=== PATIENT | female | born 1965 | race Two or more races ===

== ENCOUNTER 2024-04-22 15:17 | Outpatient (AMB) | payer MEDICAID, SELFPAY ==
[2024-04-22 15:38] VITALS: BP 147/92; PULSE 93; RESP 18; TEMP 35.9; O2SAT 96; BMI 35.4
--- NOTE | 2024-04-22 15:38 | PD.ORTHCLVIS ---
Vital signs 04/22/24 15:38 Height 1.57 m Height Method Stated Weight 87.203 kg Weight Measurement Method Standing Scale BMI 35.4 BP 147/92 H Blood Pressure Source Automatic Cuff Blood Pressure Location Right Upper Arm Position Sitting Respiration 18 Pulse 93 Pulse Source Monitor Temp 96.6 F L Temp Source Temporal Artery Scan Pulse Oximetry (%) 96 Oxygen Delivery Method Room Air Med/Allergies Allergies & Medications Allergies No Known Allergies Allergy (Verified 04/22/24 15:38) Medication Reconciliation cyclobenzaprine 10 mg tablet 10 mg PO TID 01/15/24 [History Confirmed 04/22/24] multivitamin 1 tab PO QDAY 01/15/24 [History Confirmed 04/22/24] acetaminophen 500 mg tablet (Acetaminophen Extra Strength) 1,000 mg (2 x 500 mg) PO Q6H PRN pain #90 tabs 02/01/24 [Rx Confirmed 04/22/24] aspirin 81 mg tablet,delayed release 81 mg PO BID #60 tabs 02/01/24 [Rx Confirmed 04/22/24] doxycycline hyclate 100 mg tablet 100 mg PO BID #14 tabs 02/01/24 [Rx Confirmed 04/22/24] pregabalin 75 mg capsule 75 mg PO BID #45 caps 02/01/24 [Rx Confirmed 04/22/24] sennosides 8.6 mg-docusate sodium 50 mg tablet (Senna-S) 1 tab-cap PO QDAY #30 tabs 02/01/24 [Rx Confirmed 04/22/24] oxycodone 5 mg tablet 5 mg PO Q6H PRN pain #28 tabs 02/16/24 [Rx Confirmed 04/22/24] cyclobenzaprine 5 mg tablet 5 mg PO QHS PRN muscle spasm #30 tabs 04/22/24 [Rx] ibuprofen 800 mg tablet 800 mg PO Q8H PRN pain #50 tabs 04/22/24 [Rx] Subjective Visit Visit for: follow up visit Immunization / Flu Flu Vaccine in the Last 12 Months: No Flu Vaccine Exclusion Criteria: No Exclusion Criteria History of Present Illness Chief complaint: 4 WEEK FOLLOW UP Patient is doing well 12 weeks postop from a left total knee replacement. She is doing outpatient pt. Pain Pain level (0-10): 0 Pain duration: CONSTANT Pain location: inside (medial) Pain quality: sharp, dull and aching Pain timing: night and increases with activity Associated signs & symptoms: none Ambulatory data Ambulatory device: cane Treatments Improvement with previous injections: No Improvement with PT: No Improvement with NSAIDS: no Review of Systems Review of Systems: All systems negative unless otherwise noted in HPI. Exam Exam Patient is in no acute distress and is cooperative with the examination today. Breathing is nonlabored. Patient has a normal mood and affect. The patient has a gait that is [nonantalgic] Bilateral extremities were evaluated and demonstrates sensation intact to light touch. Palpable pedal pulses are present. No significant edema is present. Bilateral hips were examined. The patient has no pain with log roll of the hips. Internal rotation to 30 degrees and external rotation to 30 degrees is painless. Negative FADIR. Right knee was examined today. The right knee is in reasonable alignment. Range of motion from 0-120 degrees. Knee is stable to varus and valgus as well as AP translation with <5mm. Patient has a negative McMurrays. There is no pain with patellofemoral compression and no crepitus noted. The knee is nontender to palpation. Left knee incision clean, dry, and intact. 0-100 degrees for rom X-rays demonstrate a left total knee replacement in good alignment position. Assessment and Plan Problem List (1) Unilateral primary osteoarthritis, left knee: Status: Acute (2) History of total left knee replacement: Status: Acute Plan: Patient is doing well s/p L TKA. We will see the patient back in approximately 3 months. Office Procedures GNS Level of Care Nursing/Assessment Patient Status: Established Patient Nursing Assessment/Reassesment: Medication Reconciliation, Update PMH in EMR and Vital Signs Coordination of Care: Complex Care and Chronic Disease 1-5, Education Complex Pt/Fam, Consent,records obtained, informed consent and Staff clarify orders Established Patient Charge Established Patient Point Assignment: 90 Established Patient Point Charge: EP Level 3 (80-115) Past Medical History Past Medical History Have you ever been diagnosed with any of the following: Neurological Problems Seizures: No Cardiology Problems Congestive Heart Failure: No Respiratory Problems Chronic Obstructive Pulmonary Disease (COPD): No Smoking: No Smoking Cessation Counseling: No Smoking Exposure: No Tobacco Use: No Clubbing: No Stomache/Intestinal Problems Hepatitis: No Obesity: Yes Genital/Urinary Problems Renal Disease: No Reproductive Problems Previous Pregnancies: Yes Musculoskeletal Problems Arthritis: Yes (knee left) Degenerative Disk Disease: Yes Carpal Tunnel Syndrome: Yes (Bilateral) Endocrine Problems Diabetes Mellitus Type 1: No Diabetes Mellitus Type 2: No Psychologic Problems Anxiety: Yes (no meds) Other Problems Hospitalization: No Shingles: Yes Blood Transfusions: No Blood Transfusion Reaction: No Anesthesia Reactions: No Chicken Pox: Yes Cancer: No
== END 2024-04-22 15:50 | disposition home or self-care (01) ==
LOC: HODSRG 15:17
PROVIDERS: PCP Emergency Medicine; Referring Provider Emergency Medicine; Supervising Provider Orthopaedic Surgery Adult Reconstructive Orthopaedic Surgery; Visit Provider Orthopaedic Surgery Adult Reconstructive Orthopaedic Surgery
DX: M17.12 Unilateral primary osteoarthritis, left knee (principal); Z96.652 Presence of left artificial knee joint
CPT/HCPCS: 99213; G0463

== ENCOUNTER 2024-08-02 14:13 | Outpatient (AMB) | payer MEDICARE, MEDICAID, SELFPAY ==
--- NOTE | 2024-08-02 14:37 | ORTHONT_ITS ---
Vital signs 08/02/24 14:38 Height 1.57 m Height Method Stated Weight 86.353 kg Weight Measurement Method Standing Scale BMI 35.0 BP 157/84 H Blood Pressure Source Automatic Cuff Blood Pressure Location Right Upper Arm Position Sitting Respiration 18 Pulse 78 Pulse Source Monitor Temp 97.6 F Temp Source Temporal Artery Scan Pulse Oximetry (%) 95 Oxygen Delivery Method Room Air Med/Allergies Allergies & Medications Allergies No Known Allergies Allergy (Verified 08/02/24 14:38) Medication Reconciliation cyclobenzaprine 10 mg tablet 10 mg PO TID 01/15/24 [History Confirmed 08/02/24] multivitamin 1 tab PO QDAY 01/15/24 [History Confirmed 08/02/24] acetaminophen 500 mg tablet (Acetaminophen Extra Strength) 1,000 mg (2 x 500 mg) PO Q6H PRN pain #90 tabs 02/01/24 [Rx Confirmed 08/02/24] aspirin 81 mg tablet,delayed release 81 mg PO BID #60 tabs 02/01/24 [Rx Confirmed 08/02/24] doxycycline hyclate 100 mg tablet 100 mg PO BID #14 tabs 02/01/24 [Rx Confirmed 08/02/24] pregabalin 75 mg capsule 75 mg PO BID #45 caps 02/01/24 [Rx Confirmed 08/02/24] sennosides 8.6 mg-docusate sodium 50 mg tablet (Senna-S) 1 tab-cap PO QDAY #30 tabs 02/01/24 [Rx Confirmed 08/02/24] oxycodone 5 mg tablet 5 mg PO Q6H PRN pain #28 tabs 02/16/24 [Rx Confirmed 08/02/24] cyclobenzaprine 5 mg tablet 5 mg PO QHS PRN muscle spasm #30 tabs 04/22/24 [Rx Confirmed 08/02/24] ibuprofen 800 mg tablet 800 mg PO Q8H PRN pain #50 tabs 04/22/24 [Rx Confirmed 08/02/24] Exam Exam Patient is in no acute distress and is cooperative with the examination today. Breathing is nonlabored. Patient has a normal mood and affect. The patient has a gait that is [nonantalgic] Bilateral extremities were evaluated and demonstrates sensation intact to light touch. Palpable pedal pulses are present. No significant edema is present. Bilateral hips were examined. The patient has no pain with log roll of the hips. Internal rotation to 30 degrees and external rotation to 30 degrees is painless. Negative FADIR. Right knee was examined today. The right knee is in reasonable alignment. Range of motion from 0-120 degrees. Knee is stable to varus and valgus as well as AP translation with <5mm. Patient has a negative McMurrays. There is no pain with patellofemoral compression and no crepitus noted. The knee is nontender to palpation. Left knee incision clean, dry, and intact. 0-100 degrees for rom X-rays demonstrate a left total knee replacement in good alignment position. Assessment and Plan Problem List (1) Unilateral primary osteoarthritis, left knee: Status: Acute (2) History of total left knee replacement: Status: Acute Plan: Patient is doing well s/p L TKA. We will see the patient back in approximately 6 months. She has some contralateral knee pain as well as right hip pain. We will order x-rays to take a look at this Office Procedures GNS Level of Care Nursing/Assessment Patient Status: Established Patient Nursing Assessment/Reassesment: Medication Reconciliation, Update PMH in EMR and Vital Signs Coordination of Care: Complex Care and Chronic Disease 1-5, Education Complex Pt/Fam, Consent,records obtained, informed consent, Results/Orders obtained and Staff clarify orders Special Needs: Language special needs Established Patient Charge Established Patient Point Assignment: 95 Established Patient Point Charge: EP Level 3 (80-115) MA Intake Visit Data Collection New Patient or Established: Established Patient (seen at [facility] within 3 years) Reason for Visit:: F/U 3 MONTHS Seen by Clinical Staff ONLY (RN/MA): No Verbal consent obtained for Telemed visit?: No 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 PCP or OBGYN visit in last 3 months: Yes Hx Now: No Do You Feel Safe at Home: Yes Authorities Contacted: N/A Questionairres Past Medical History Past Medical History Have you ever been diagnosed with any of the following: Neurological Problems Seizures: No Cardiology Problems Congestive Heart Failure: No Respiratory Problems Chronic Obstructive Pulmonary Disease (COPD): No Smoking: No Smoking Cessation Counseling: No Smoking Exposure: No Tobacco Use: No Clubbing: No Stomache/Intestinal Problems Hepatitis: No Obesity: Yes Genital/Urinary Problems Renal Disease: No Reproductive Problems Previous Pregnancies: Yes Musculoskeletal Problems Arthritis: Yes (knee left) Degenerative Disk Disease: Yes Carpal Tunnel Syndrome: Yes (Bilateral) Endocrine Problems Diabetes Mellitus Type 1: No Diabetes Mellitus Type 2: No Psychologic Problems Anxiety: Yes (no meds) Other Problems Hospitalization: No Shingles: Yes Blood Transfusions: No Blood Transfusion Reaction: No Anesthesia Reactions: No Chicken Pox: Yes Cancer: No Subjective Visit Visit for: follow up visit and knee Immunization / Flu Flu Vaccine in the Last 12 Months: No Flu Vaccine Exclusion Criteria: No Exclusion Criteria History of Present Illness Chief complaint: 3 MONTH FOLLOW UP Patient is doing well s/p L TKA. She is doing well s/p L TKA. Pain Pain level (0-10): 0 Ambulatory data Ambulatory device: none Treatments Improvement with previous injections: No Improvement with PT: No Improvement with NSAIDS: no Review of Systems Review of Systems: All systems negative unless otherwise noted in HPI.
[2024-08-02 14:38] VITALS: BP 157/84; PULSE 78; RESP 18; TEMP 36.4; O2SAT 95; BMI 35.0
== END 2024-08-02 15:15 | disposition home or self-care (01) ==
PROVIDERS: PCP Emergency Medicine; Referring Provider Emergency Medicine; Supervising Provider Orthopaedic Surgery Adult Reconstructive Orthopaedic Surgery; Visit Provider Orthopaedic Surgery Adult Reconstructive Orthopaedic Surgery
DX: M17.12 Unilateral primary osteoarthritis, left knee (principal); Z96.652 Presence of left artificial knee joint; M25.551 Pain in right hip
CPT/HCPCS: 99213; G0463

== ENCOUNTER 2024-09-08 13:46 | Outpatient (AMB) | payer MEDICARE, MEDICAID, SELFPAY ==
[2024-09-08 14:14] VITALS: BP 132/87; PULSE 77; RESP 18; TEMP 36.4; O2SAT 96; BMI 35.3
--- NOTE | 2024-09-08 14:14 | PD.ORTHCLVIS ---
Vital signs 09/08/24 14:14 Height 1.57 m Height Method Stated Weight 87 kg Weight Measurement Method Estimated by Patient BMI 35.3 BP 132/87 H Blood Pressure Source Automatic Cuff Blood Pressure Location Right Upper Arm Position Sitting Respiration 18 Pulse 77 Pulse Source Monitor Temp 97.6 F Temp Source Temporal Artery Scan Pulse Oximetry (%) 96 Oxygen Delivery Method Room Air Med/Allergies Allergies & Medications Allergies No Known Allergies Allergy (Verified 09/08/24 14:17) Medication Reconciliation cyclobenzaprine 10 mg tablet 10 mg PO TID 01/15/24 [History Confirmed 09/08/24] multivitamin 1 tab PO QDAY 01/15/24 [History Confirmed 09/08/24] acetaminophen 500 mg tablet (Acetaminophen Extra Strength) 1,000 mg (2 x 500 mg) PO Q6H PRN pain #90 tabs 02/01/24 [Rx Confirmed 09/08/24] aspirin 81 mg tablet,delayed release 81 mg PO BID #60 tabs 02/01/24 [Rx Confirmed 09/08/24] doxycycline hyclate 100 mg tablet 100 mg PO BID #14 tabs 02/01/24 [Rx Confirmed 09/08/24] pregabalin 75 mg capsule 75 mg PO BID #45 caps 02/01/24 [Rx Confirmed 09/08/24] sennosides 8.6 mg-docusate sodium 50 mg tablet (Senna-S) 1 tab-cap PO QDAY #30 tabs 02/01/24 [Rx Confirmed 09/08/24] oxycodone 5 mg tablet 5 mg PO Q6H PRN pain #28 tabs 02/16/24 [Rx Confirmed 09/08/24] cyclobenzaprine 5 mg tablet 5 mg PO QHS PRN muscle spasm #30 tabs 04/22/24 [Rx Confirmed 09/08/24] ibuprofen 800 mg tablet 800 mg PO Q8H PRN pain #50 tabs 04/22/24 [Rx Confirmed 09/08/24] Exam Exam Patient is in no acute distress and is cooperative with the examination today. Breathing is nonlabored. Patient has a normal mood and affect. The patient has a gait that is [nonantalgic] Bilateral extremities were evaluated and demonstrates sensation intact to light touch. Palpable pedal pulses are present. No significant edema is present. Bilateral hips were examined. The patient has no pain with log roll of the hips. Internal rotation to 30 degrees and external rotation to 30 degrees is painless. Negative FADIR. Right knee was examined today. The right knee is in reasonable alignment. Range of motion from 0-120 degrees. Knee is stable to varus and valgus as well as AP translation with <5mm. Patient has a negative McMurrays. There is no pain with patellofemoral compression and no crepitus noted. The knee is nontender to palpation. Left knee incision clean, dry, and intact. 0-100 degrees for rom X-rays demonstrate a left total knee replacement in good alignment position. Right hip x-rays demonstrate preserved joint spaces. There is found to be L4-S1 degenerative disc disease Assessment and Plan Problem List (1) Lumbar radiculopathy: Status: Acute Plan: Patient is a 58-year-old female with right buttocks pain that radiates down her leg. The pain is excruciating. We will send her muscle laxer nerve medication. We obtained hip x-rays and they were completely normal. We will get an MRI and spine x-rays. Will discuss different treatment options for her spinal stenosis depending on what the imaging shows Office Procedures GNS Level of Care Nursing/Assessment Patient Status: Established Patient Nursing Assessment/Reassesment: Medication Reconciliation, Update PMH in EMR and Vital Signs Coordination of Care: Complex Care and Chronic Disease 1-5, Education Complex Pt/Fam, Consent,records obtained, informed consent, Results/Orders obtained and Staff clarify orders Established Patient Charge Established Patient Point Assignment: 95 Established Patient Point Charge: EP Level 3 (80-115) MA Intake Visit Data Collection New Patient or Established: Established Patient (seen at [facility] within 3 years) Reason for Visit:: XRAYS FOLLOW UP Seen by Clinical Staff ONLY (RN/MA): No Verbal consent obtained for Telemed visit?: No 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 PCP or OBGYN visit in last 3 months: Yes Hx Now: No Do You Feel Safe at Home: Yes Authorities Contacted: N/A Questionairres Past Medical History Past Medical History Have you ever been diagnosed with any of the following: Neurological Problems Seizures: No Cardiology Problems Congestive Heart Failure: No Respiratory Problems Chronic Obstructive Pulmonary Disease (COPD): No Smoking: No Smoking Cessation Counseling: No Smoking Exposure: No Tobacco Use: No Clubbing: No Stomache/Intestinal Problems Hepatitis: No Obesity: Yes Genital/Urinary Problems Renal Disease: No Reproductive Problems Previous Pregnancies: Yes Musculoskeletal Problems Arthritis: Yes (knee left) Degenerative Disk Disease: Yes Carpal Tunnel Syndrome: Yes (Bilateral) Endocrine Problems Diabetes Mellitus Type 1: No Diabetes Mellitus Type 2: No Psychologic Problems Anxiety: Yes (no meds) Other Problems Hospitalization: No Shingles: Yes Blood Transfusions: No Blood Transfusion Reaction: No Anesthesia Reactions: No Chicken Pox: Yes Cancer: No Subjective Visit Visit for: follow up visit and x-rays Immunization / Flu Flu Vaccine in the Last 12 Months: No Flu Vaccine Exclusion Criteria: No Exclusion Criteria History of Present Illness Chief complaint: F/U XRAYS Diane is a pleasant 58-year-old female who is status post left total Knee replacement 7 months ago. She reports the right buttocks is hurting and it radiates to the groin. She is here for x-ray results of her right hip Pain Pain level (0-10): 10 Pain duration: ALL DAY Pain location: outside (lateral) Pain quality: sharp Pain timing: increases with activity Associated signs & symptoms: stiffness Ambulatory data Ambulatory device: none Treatments Improvement with previous injections: No Improvement with PT: No Improvement with NSAIDS: no Review of Systems Review of Systems: All systems negative unless otherwise noted in HPI.
--- NOTE | 2024-09-08 14:27 | XR_ITS ---
Examination: Lumbar spine 3 views Technique: AP, lateral, coned lateral lower lumbar spine 3 views. Exam date and time: September 08, 2024, 1437 hrs. Indication: Low back pain radiating to the right hip beginning 4 months ago. Findings: Moderate to advanced diffuse lumbar degenerative disc disease Prominent lumbar spondylosis. No lumbar fracture No cortical bone destruction. Impression: Moderate to advanced diffuse lumbar degenerative disc disease
== END 2024-09-08 15:20 | disposition home or self-care (01) ==
LOC: HODSRG 13:46
PROVIDERS: PCP Emergency Medicine; Referring Provider Emergency Medicine; Supervising Provider Orthopaedic Surgery Adult Reconstructive Orthopaedic Surgery; Visit Provider Orthopaedic Surgery Adult Reconstructive Orthopaedic Surgery
DX: M54.16 Radiculopathy, lumbar region (principal); Z96.652 Presence of left artificial knee joint
CPT/HCPCS: 72100; 99213; G0463

== ENCOUNTER → 2024-10-17 | Outpatient (CLI) | payer MEDICARE, MEDICAID, SELFPAY ==
[2024-10-17 12:30] LABS: Alanine Aminotransferase 22 U/L (10-49); Albumin, Serum 4.6 gm/dL (3.4-4.8); Alkaline Phosphatase 123 U/L (46-116); Anion Gap 6 (7-16); Aspartate Amino Transferase 20 U/L (0-34); BUN/Creatinine Ratio 15 Ratio (12-20); Bilirubin,Direct 0.1 mg/dL (0.0-0.3); Bilirubin,Total 0.4 mg/dL (0.3-1.2); Blood Urea Nitrogen 12 mg/dL (9-23); Calcium 9.5 mg/dL (8.3-10.6); Carbon Dioxide 25.7 mMol/L (20.0-31.0); Chloride 108 mMol/L (98-107); Creatinine (Component) 0.8 mg/dL (0.6-1.3); Glucose 87 mg/dL (74-106); Osmolality,Calculated 278 (275-295); Potassium 4.4 mMol/L (3.4-5.1); Sodium 140 mMol/L (136-145); Total Protein 7.3 gm/dL (5.7-8.2); eGFR > 60 See Note
== END | disposition home or self-care (01) ==
LOC: COPL 11:19
PROVIDERS: PCP Family Medicine; Referring Provider Family Medicine; Visit Provider Family Medicine
DX: B35.1 Tinea unguium (principal); M54.50 Low back pain, unspecified
CPT/HCPCS: 36415; 80048; 80076

== ENCOUNTER → 2024-11-16 | Outpatient (CLI) | payer MEDICARE, MEDICAID, SELFPAY ==
--- NOTE | 2024-11-16 10:30 | XR_ITS ---
Examination: MRI lumbar spine without contrast Date and time of exam: November 16, 2024 at 1119 hours INDICATIONS: Low back pain radiating to the groin region beginning July 2024 Technique: Multiple MRI axial and sagittal sections lumbar spine. Sagittal T2-weighted images, TR 3500, TE 118 T1 weighted transverse sections, TR 688 T8.5, T2-weighted sagittal sections T1 weighted sagittal sections TR 621, TE 30 T2 axial sections, TR 4, 190, TE 84. Findings: Adequate alignment lumbar vertebral bodies Advanced disc narrowing lower 4 lumbar levels Diffuse lumbar disc dislocation Adequate marrow signal lumbar vertebral bodies No spondylolisthesis L5-S1 6 mm central lumbar disc bulge L4-L5 5 mm central lumbar disc bulge extending to the left foraminal region with mild left L4 ganglionic compression L3-L4 4 mm central 6 mm left foraminal 4 mm right foraminal disc bulges L2-L3 6 mm left foraminal 4 mm right foraminal disc bulges L1-L2 no disc protrusion IMPRESSION: Advanced degenerative disc disease lower 4 lumbar levels L5-S1 6 mm central lumbar disc bulge L4-L5 5 mm central lumbar disc bulge extending to the left foraminal region with mild left L4 ganglionic compression L3-L4, L2-L3 foraminal disc bulges but no ganglionic compression
== END | disposition home or self-care (01) ==
LOC: SMRI 10:03
PROVIDERS: PCP Family Medicine; Referring Provider Family Medicine; Visit Provider Family Medicine
DX: M51.360 Other intervertebral disc degeneration, lumbar region with discogenic back pain only (principal); M51.370 Other intervertebral disc degeneration, lumbosacral region with discogenic back pain only; G95.20 Unspecified cord compression
CPT/HCPCS: 72148

== ENCOUNTER 2025-01-17 13:04 | Outpatient (AMB) | payer MEDICAID, MEDICARE, SELFPAY ==
[2025-01-17 13:33] VITALS: BP 137/77; PULSE 68; RESP 19; TEMP 36.4; O2SAT 96; BMI 35.6
--- NOTE | 2025-01-17 13:33 | PD.ORTHCLVIS ---
Vital signs 01/17/25 13:33 Height 1.57 m Height Method Stated Weight 87.77 kg Weight Measurement Method Standing Scale BMI 35.6 BP 137/77 H Blood Pressure Source Automatic Cuff Blood Pressure Location Left Upper Arm Position Sitting Respiration 19 Pulse 68 Pulse Source Monitor Temp 97.6 F Temp Source Temporal Artery Scan Pulse Oximetry (%) 96 Oxygen Delivery Method Room Air Med/Allergies Allergies & Medications Allergies No Known Allergies Allergy (Verified 01/17/25 13:34) Medication Reconciliation cyclobenzaprine 10 mg tablet 10 mg PO TID 01/15/24 [History Confirmed 01/17/25] multivitamin 1 tab PO QDAY 01/15/24 [History Confirmed 01/17/25] acetaminophen 500 mg tablet (Acetaminophen Extra Strength) 1,000 mg (2 x 500 mg) PO Q6H PRN pain #90 tabs 02/01/24 [Rx Confirmed 01/17/25] aspirin 81 mg tablet,delayed release 81 mg PO BID #60 tabs 02/01/24 [Rx Confirmed 01/17/25] doxycycline hyclate 100 mg tablet 100 mg PO BID #14 tabs 02/01/24 [Rx Confirmed 01/17/25] pregabalin 75 mg capsule 75 mg PO BID #45 caps 02/01/24 [Rx Confirmed 01/17/25] sennosides 8.6 mg-docusate sodium 50 mg tablet (Senna-S) 1 tab-cap PO QDAY #30 tabs 02/01/24 [Rx Confirmed 01/17/25] oxycodone 5 mg tablet 5 mg PO Q6H PRN pain #28 tabs 02/16/24 [Rx Confirmed 01/17/25] ibuprofen 800 mg tablet 800 mg PO Q8H PRN pain #50 tabs 04/22/24 [Rx Confirmed 01/17/25] cyclobenzaprine 5 mg tablet 5 mg PO QHS PRN muscle spasm #30 tabs 09/08/24 [Rx Confirmed 01/17/25] gabapentin 300 mg capsule 300 mg PO QHS #60 caps 09/08/24 [Rx Confirmed 01/17/25] Exam Exam Patient is in no acute distress and is cooperative with the examination today. Breathing is nonlabored. Patient has a normal mood and affect. The patient has a gait that is [nonantalgic] Bilateral extremities were evaluated and demonstrates sensation intact to light touch. Palpable pedal pulses are present. No significant edema is present. Bilateral hips were examined. The patient has no pain with log roll of the hips. Internal rotation to 30 degrees and external rotation to 30 degrees is painless. Negative FADIR. Right knee was examined today. The right knee is in reasonable alignment. Range of motion from 0-120 degrees. Knee is stable to varus and valgus as well as AP translation with <5mm. Patient has a negative McMurrays. There is no pain with patellofemoral compression and no crepitus noted. The knee is nontender to palpation. Left knee incision clean, dry, and intact. 0-100 degrees for rom X-rays demonstrate a left total knee replacement in good alignment position. Right hip x-rays demonstrate preserved joint spaces. There is found to be L4-S1 degenerative disc disease Assessment and Plan Problem List (1) Lumbar radiculopathy: Status: Acute Plan: Patient is a 58-year-old female with right buttocks pain that radiates down her leg. The pain is excruciating. She had a lumbar spine injection with complete relief. I recommend that she see a spine surgeon. Her right hip x-rays did not look good in the past. We will order new ones as she does have a lot of pain in the groin. We discussed we can try a right hip cortisone injection as well Office Procedures GNS Level of Care Nursing/Assessment Patient Status: Established Patient Nursing Assessment/Reassesment: Medication Reconciliation, Update PMH in EMR and Vital Signs Coordination of Care: Complex Care and Chronic Disease 1-5, Education Complex Pt/Fam, Consent,records obtained, informed consent, Results/Orders obtained and Staff clarify orders Established Patient Charge Established Patient Point Assignment: 95 Established Patient Point Charge: EP Level 3 (80-115) Questionairres Past Medical History Past Medical History Have you ever been diagnosed with any of the following: Neurological Problems Seizures: No Cardiology Problems Congestive Heart Failure: No Respiratory Problems Chronic Obstructive Pulmonary Disease (COPD): No Smoking: No Smoking Cessation Counseling: No Smoking Exposure: No Tobacco Use: No Clubbing: No Stomache/Intestinal Problems Hepatitis: No Obesity: Yes Genital/Urinary Problems Renal Disease: No Reproductive Problems Previous Pregnancies: Yes Musculoskeletal Problems Arthritis: Yes (knee left) Degenerative Disk Disease: Yes Carpal Tunnel Syndrome: Yes (Bilateral) Endocrine Problems Diabetes Mellitus Type 1: No Diabetes Mellitus Type 2: No Psychologic Problems Anxiety: Yes (no meds) Other Problems Hospitalization: No Shingles: Yes Blood Transfusions: No Blood Transfusion Reaction: No Anesthesia Reactions: No Chicken Pox: Yes Cancer: No Subjective Visit Visit for: follow up visit and x-rays Immunization / Flu Flu Vaccine in the Last 12 Months: No Flu Vaccine Exclusion Criteria: No Exclusion Criteria History of Present Illness Chief complaint: F/U XRAYS Diane is a pleasant 58-year-old female who is status post left total Knee replacement 7 months ago. She reports the right buttocks is hurting and it radiates to the groin. She is here for x-ray results of her right hip Pain Pain level (0-10): 10 Pain duration: ALL DAY Pain location: outside (lateral) Pain quality: sharp Pain timing: increases with activity Associated signs & symptoms: stiffness Ambulatory data Ambulatory device: none Treatments Improvement with previous injections: No Improvement with PT: No Improvement with NSAIDS: no Review of Systems Review of Systems: All systems negative unless otherwise noted in HPI.
--- NOTE | 2025-01-17 13:38 | XR_ITS ---
Examination:Right hip AP, lateral, AP pelvis 3 views Technique: Hip AP lateral, AP pelvis, 3 views Exam date and time:January 17, 2025 1358 hours INDICATIONS: Right hip pain beginning 7 months ago. FINDINGS: Prominent osteopenia. Moderate right hip osteoarthritis. No hip or pelvic fracture IMPRESSION: Moderate right hip osteoarthritis.
== END 2025-01-17 13:53 | disposition home or self-care (01) ==
PROVIDERS: PCP Emergency Medicine; Referring Provider Emergency Medicine; Supervising Provider Orthopaedic Surgery Adult Reconstructive Orthopaedic Surgery; Visit Provider Orthopaedic Surgery Adult Reconstructive Orthopaedic Surgery
DX: M54.16 Radiculopathy, lumbar region (principal); M16.11 Unilateral primary osteoarthritis, right hip; Z96.652 Presence of left artificial knee joint
CPT/HCPCS: 73502; 99213; G0463

== ENCOUNTER 2025-03-10 12:55 | Day surgery (SDC) | payer MEDICARE, SELFPAY ==
[2025-03-09 14:57] VITALS: BMI 35.4
[2025-03-10] VITALS (10 sets, daily range): BP systolic 120–148; BP diastolic 77–87; PULSE 64–74; RESP 17–18; TEMP 36.1–36.6; O2SAT 94–100; BMI 35.1
[2025-03-10] MEDS: SODIUM CHLORIDE 0.9% 500 ML 500 ML 20 ML IV (14:35)
[2025-03-10] MEDS: MIDAZOLAM INJ 1 MG/ML VIAL 2 ML (ASD USE ONLY) 2 MG IVP (14:40)
[2025-03-10] MEDS: fentaNYL CIT INJ 50 mCg/ML AMP 2ML (ASD USE ONLY) IVP (14:40)
== END 2025-03-10 15:37 | disposition home or self-care (01) ==
PROVIDERS: PCP Family Medicine; Referring Provider Specialist; Visit Provider Specialist
PROC: 0DBE8ZX Excision of Large Intestine, Via Natural or Artificial Opening Endoscopic, Diagnostic (ICD-10-PCS; CPT 45380; principal; 2025-03-10 14:45)
DX: Z12.11 Encounter for screening for malignant neoplasm of colon (principal); K64.9 Unspecified hemorrhoids; K57.30 Diverticulosis of large intestine without perforation or abscess without bleeding
CPT/HCPCS: G0121; A4217; A4649; J1200; J2250; J3010; J7999

== ENCOUNTER → 2025-05-05 | Outpatient (CLI) | payer MEDICARE, MEDICAID, SELFPAY ==
[2025-05-05 10:56] LABS: Alanine Aminotransferase 29 U/L (10-49); Albumin, Serum 4.9 gm/dL (3.4-4.8); Alkaline Phosphatase 137 U/L (46-116); Aspartate Amino Transferase 25 U/L (0-34); Bilirubin,Direct 0.1 mg/dL (0.0-0.3); Bilirubin,Total 0.6 mg/dL (0.3-1.2); Cardiac Risk Estimate 4.3 RATIO (3.7-5.6); Cholesterol 245 mg/dL (132-200); HDL Cholesterol 57 mg/dL (40-60); LDL Cholesterol,Calculated 140 mg/dL (0-130); Total Protein 7.1 gm/dL (5.7-8.2); Triglycerides 238 mg/dL (30-150)
== END | disposition home or self-care (01) ==
LOC: COPL 09:02
PROVIDERS: PCP Family Medicine; Referring Provider Family Medicine; Visit Provider Family Medicine
DX: B35.1 Tinea unguium (principal); Z13.220 Encounter for screening for lipoid disorders
CPT/HCPCS: 36415; 80061; 80076

== ENCOUNTER 2025-06-20 07:46 | Outpatient (AMB) | payer MEDICARE, MEDICAID, SELFPAY ==
[2025-06-20 08:02] VITALS: BP 158/90; PULSE 77; RESP 19; TEMP 36.4; O2SAT 93; BMI 36.4
--- NOTE | 2025-06-20 08:02 | PD.ORTHCLVIS ---
Vital signs 06/20/25 08:02 Height 1.57 m Height Method Stated Weight 89.868 kg Weight Measurement Method Standing Scale BMI 36.4 BP 158/90 H Blood Pressure Source Automatic Cuff Blood Pressure Location Left Upper Arm Position Sitting Respiration 19 Pulse 77 Pulse Source Monitor Temp 97.5 F Temp Source Temporal Artery Scan Pulse Oximetry (%) 93 L Oxygen Delivery Method Room Air Med/Allergies Allergies & Medications Allergies No Known Allergies Allergy (Verified 06/20/25 08:03) Medication Reconciliation gabapentin 300 mg capsule 300 mg PO TID 03/09/25 [History Confirmed 06/20/25] cyclobenzaprine 5 mg tablet 5 mg PO QHS PRN muscle spasm #30 tabs 06/20/25 [Rx] meloxicam 7.5 mg tablet 7.5 mg PO QDAY #45 tabs 06/20/25 [Rx] Exam Exam Patient is in no acute distress and is cooperative with the examination today. Breathing is nonlabored. Patient has a normal mood and affect. The patient has a gait that is [nonantalgic] Bilateral extremities were evaluated and demonstrates sensation intact to light touch. Palpable pedal pulses are present. No significant edema is present. Bilateral hips were examined. The patient has no pain with log roll of the hips. Internal rotation to 30 degrees and external rotation to 30 degrees is painless. Negative FADIR. Right knee was examined today. The right knee is in reasonable alignment. Range of motion from 0-120 degrees. Knee is stable to varus and valgus as well as AP translation with <5mm. Patient has a negative McMurrays. There is no pain with patellofemoral compression and no crepitus noted. The knee is nontender to palpation. Left knee incision clean, dry, and intact. 0-100 degrees for rom X-rays demonstrate a left total knee replacement in good alignment position. Right hip x-rays demonstrate moderate hip arthritis. There is found to be L4-S1 degenerative disc disease Assessment and Plan Problem List (1) Lumbar radiculopathy: Status: Acute Plan: Patient is a 58-year-old female with right buttocks pain that radiates down her leg. The pain is excruciating. She had a lumbar spine injection with complete relief. We will try a cortisone injection as she does not have severe arthritis. We will also try anti-inflammatories Office Procedures S Level of Care Nursing/Assessment Patient Status: Established Patient Nursing Assessment/Reassesment: Medication Reconciliation, Update PMH in EMR and Vital Signs Coordination of Care: Complex Care and Chronic Disease 1-5, Education Complex Pt/Fam, Consent,records obtained, informed consent, Results/Orders obtained and Staff clarify orders Established Patient Charge Established Patient Point Assignment: 95 Established Patient Point Charge: EP Level 3 (80-115) MA Intake Visit Data Collection New Patient or Established: Established Patient (seen at [facility] within 3 years) Reason for Visit:: FOLLOW UP HIP PAIN Seen by Clinical Staff ONLY (RN/MA): No PCP or OBGYN visit in last 3 months: Yes Hx Now: No Do You Feel Safe at Home: Yes Authorities Contacted: N/A Questionairres Past Medical History Past Medical History Have you ever been diagnosed with any of the following: Neurological Problems Seizures: No Peripheral Neuropathy: Yes Cardiology Problems Congestive Heart Failure: No Respiratory Problems Chronic Obstructive Pulmonary Disease (COPD): No Smoking: No Smoking Cessation Counseling: No Smoking Exposure: No Tobacco Use: No Clubbing: No Stomache/Intestinal Problems Hepatitis: No Obesity: Yes Genital/Urinary Problems Renal Disease: No Reproductive Problems Previous Pregnancies: Yes Musculoskeletal Problems Arthritis: Yes (knee left) Degenerative Disk Disease: Yes Carpal Tunnel Syndrome: Yes (Bilateral) Endocrine Problems Diabetes Mellitus Type 1: No Diabetes Mellitus Type 2: No Psychologic Problems Anxiety: Yes (no meds) Other Problems Hospitalization: No Shingles: Yes Blood Transfusions: No Blood Transfusion Reaction: No Anesthesia Reactions: No Chicken Pox: Yes Cancer: No Subjective Visit Visit for: follow up visit and x-rays Immunization / Flu Flu Vaccine in the Last 12 Months: No Flu Vaccine Exclusion Criteria: No Exclusion Criteria History of Present Illness Chief complaint: F/U XRAYS Diane is a pleasant 58-year-old female who is status post left total Knee replacement 10 months ago. She reports the right buttocks is hurting and it radiates to the groin. She went to see her back doctor who thought that the hip was the primary problem. She has not tried any hip injections or anti-inflammatories Pain Pain level (0-10): 5 Pain duration: ON AND OFF Pain location: outside (lateral) and posterior Pain quality: dull Pain timing: increases with activity and stairs Associated signs & symptoms: stiffness Ambulatory data Ambulatory device: none Treatments Improvement with previous injections: No Improvement with PT: No Improvement with NSAIDS: no Review of Systems Review of Systems: All systems negative unless otherwise noted in HPI.
== END 2025-06-20 08:23 | disposition home or self-care (01) ==
LOC: HODSRG 07:46
PROVIDERS: PCP Family Medicine; Referring Provider Family Medicine; Supervising Provider Orthopaedic Surgery Adult Reconstructive Orthopaedic Surgery; Visit Provider Orthopaedic Surgery Adult Reconstructive Orthopaedic Surgery
DX: Z47.1 Aftercare following joint replacement surgery (principal); Z96.652 Presence of left artificial knee joint; M54.16 Radiculopathy, lumbar region; E66.9 Obesity, unspecified; Z68.36 Body mass index [BMI] 36.0-36.9, adult
CPT/HCPCS: 99213; G0463